=== PATIENT | male | born 1980 | race Caucasian/White ===

== ENCOUNTER 2018-11-17 21:02 | Emergency (ER) | payer MEDICARE, MEDICAID ==
[2018-11-17 21:54] LABS: ABSOLUTE BASOPHILS # (AUTO) 0.1 10^3/uL (0.0-0.2); ABSOLUTE EOSINOPHILS # (AUTO) 0.2 10^3/uL (0.0-0.6); ABSOLUTE LYMPHOCYTES (AUTO) 2.3 10^3/uL (0.5-4.7); ABSOLUTE MONOCYTES (AUTO) 0.7 10^3/uL (0.1-1.4); ABSOLUTE NEUT (AUTO) 3.4 10^3/uL (1.7-8.2); BASOPHILS % (AUTO) 1.1 % (0-2); EOSINOPHILS % (AUTO) 2.6 % (0-6); HEMOGLOBIN 14.4 g/dL (13.5-17.0); LYMPHOCYTES % (AUTO) 35.2 % (13-45); MEAN CORPUSCULAR HEMOGLOBIN 30.8 pg (27.0-33.4); MEAN CORPUSCULAR HGB CONC 34.4 g/dL (32.0-36.0); MEAN CORPUSCULAR VOLUME 90 fl (80-97); PLATELET COUNT 253 10^3/uL (150-450); RED BLOOD COUNT 4.69 10^6/uL (4.35-5.55); RED CELL DISTRIBUTION WIDTH 13.8 % (11.5-14.0); SEGMENTED NEUTROPHILS % (AUTO) 51.1 % (42-78); TOTAL CELLS COUNTED % (AUTO) 100 %; WHITE BLOOD COUNT 6.6 10^3/uL (4.0-10.5)
[2018-11-17 22:05] LABS: ALANINE AMINOTRANSFERASE 68 U/L (21-72); ALBUMIN 4.4 g/dL (3.5-5.0); ALCOHOL 20 mg/dL (NONE DETECTED); ALKALINE PHOSPHATASE 75 U/L (38-126); ANION GAP 10 (5-19); ASPARTATE AMINO TRANSFERASE 109 U/L (17-59); BILIRUBIN,DIRECT 0.1 mg/dL (0.0-0.4); BILIRUBIN,TOTAL 0.2 mg/dL (0.2-1.3); BLOOD UREA NITROGEN 18 mg/dL (7-20); CARBON DIOXIDE 25 mmol/L (22-30); CHLORIDE 106 mmol/L (98-107); GLUCOSE 82 mg/dL (75-110); POTASSIUM 4.3 mmol/L (3.6-5.0); SODIUM 140.5 mmol/L (137-145); TOTAL PROTEIN 6.3 g/dL (6.3-8.2)
[2018-11-17 22:06] LABS: ACETAMINOPHEN < 10 ug/mL (10-30); SALICYLATE < 1.0 mg/dL (2.0-20.0)
[2018-11-17] MEDS ORDERED: OLANZAPINE 5 MG TAB.RAPDIS PO ONE (22:23)
[2018-11-17 23:22] LABS: APPEARANCE,URINE CLEAR; BILIRUBIN,URINE NEGATIVE (NEGATIVE); COLOR,URINE YELLOW; GLUCOSE, URINE NEGATIVE (NEGATIVE); KETONES,URINE 20 mg/dL (NEGATIVE); LEUKOCYTE ESTERASE,URINE NEGATIVE (NEGATIVE); NITRITE,URINE NEGATIVE (NEGATIVE); PROTEIN,URINE NEGATIVE (NEGATIVE); URINE SPECIFIC GRAVITY 1.023
[2018-11-17 23:39] LABS: URINE AMPHETAMINES SCREEN NEGATIVE; URINE BARBITURATES SCREEN NEGATIVE; URINE BENZODIAZEPINES SCREEN NEGATIVE; URINE COCAINE SCREEN NEGATIVE; URINE MARIJUANA (THC) SCREEN NEGATIVE; URINE METHADONE SCREEN NEGATIVE; URINE PHENCYCLIDINE SCREEN NEGATIVE
--- NOTE | 2018-11-18 04:44 | ER Document Report ---
Entered by JACQUELINE MENDIETA SCRIBE 11/18/18 0248 Acting as scribe for:TELLY DODSON DO ED Psych Disorder / Suicide - General Chief Complaint: Psych Problem Stated Complaint: IVC Time Seen by Provider: 11/17/18 21:24 Mode of Arrival: Ambulatory Notes: 38-year-old male who presents to the emergency department today on IVC paperwork with complaints of "talking to people that are not there". According to the IVC paperwork the patient's sister states she is the caregiver for the patient and he is accusing her of stealing his things and cars from him but he has never owned any vehicles. Patient admits to EtOH usage today prior to arrival. TRAVEL OUTSIDE OF THE [place] IN LAST 30 DAYS: No - Related Data Allergies/Adverse Reactions: haloperidol [From Haldol] Allergy (Verified 11/17/18 22:54) Past Medical History - General Information source: Patient - Social History Smoking Status: Current Every Day Smoker Chew tobacco use (# tins/day): No Frequency of alcohol use: Heavy Drug Abuse: None Lives with: Family Family History: Reviewed & Not Pertinent Patient has suicidal ideation: Yes Patient has homicidal ideation: Yes Past Surgical History: Reports: Hx Cholecystectomy Review of Systems - Review of Systems Constitutional: No symptoms reported EENT: No symptoms reported Cardiovascular: No symptoms reported Respiratory: No symptoms reported Gastrointestinal: No symptoms reported Genitourinary: No symptoms reported Male Genitourinary: No symptoms reported Musculoskeletal: No symptoms reported Skin: No symptoms reported Hematologic/Lymphatic: No symptoms reported Neurological/Psychological: See HPI, Other - EtOH -: Yes All other systems reviewed and negative Physical Exam - Vital signs Vitals: Temp Pulse Resp BP Pulse Ox 98.4 F 120 H 16 133/79 H 100 11/17/18 21:02 11/17/18 21:02 11/17/18 21:02 11/17/18 21:02 11/17/18 21:02 Interpretation: Normal - General General appearance: Appears well, Alert - HEENT Head: Normocephalic, Atraumatic Eyes: Normal Pupils: PERRL - Respiratory Respiratory status: No respiratory distress Chest status: Nontender Breath sounds: Normal Chest palpation: Normal - Cardiovascular Rhythm: Regular Heart sounds: Normal auscultation Murmur: No - Abdominal Inspection: Normal Distension: No distension Bowel sounds: Normal Tenderness: Nontender Organomegaly: No organomegaly - Back Back: Normal, Nontender - Extremities General upper extremity: Normal inspection, Nontender, Normal color, Normal ROM, Normal temperature General lower extremity: Normal inspection, Nontender, Normal color, Normal ROM, Normal temperature, Normal weight bearing. No: Marisela's sign - Neurological Neuro grossly intact: Yes Cognition: Normal Orientation: AAOx4 Wick[place] Coma Scale Eye Opening: Spontaneous Leland Coma Scale Verbal: Oriented [place]fe Coma Scale Motor: Obeys Commands Leland Coma Scale Total: 15 Speech: Normal Motor strength normal: LUE, RUE, LLE, RLE Sensory: Normal - Psychological Associated symptoms: Labile, Restlessness - Skin Skin Temperature: Warm Skin Moisture: Dry Skin Color: Normal Course - Re-evaluation Re-evalutation: 11/18/18 Patient was brought in by law enforcement on involuntary commitment paperwork for apparently being aggressive with family this evening. Patient is restless in the room. States that he is not on any medications for anything although he probably is supposed to be. He is medically stable and will be held for mental health evaluation in the morning. Denies history of alcohol withdrawal. Of note, EtOH is only 20 Patient with no tremulousness. Repeat vitals with no evidence for alcohol withdrawal - Vital Signs Vital signs: Temp Pulse Resp BP Pulse Ox 98.4 F 120 H 16 133/79 H 100 11/17/18 21:02 11/17/18 21:02 11/17/18 21:02 11/17/18 21:02 11/17/18 21:02 - Laboratory Result Diagrams: 11/17/18 21:40 11/17/18 21:40 Laboratory results interpreted by me: 11/17/18 11/17/18 21:40 22:00 AST 109 H Urine Ketones 20 H Urine Urobilinogen 4.0 H Salicylates < 1.0 L Acetaminophen < 10 L Discharge - Discharge Clinical Impression: Behavior concern in adult Condition: Stable Disposition: OTHER Scribe Attestation: 11/18/18 04:43 I personally performed the services described in the documentation, reviewed and edited the documentation which was dictated to the scribe in my presence, and it accurately records my words and actions. I personally performed the services described in the documentation, reviewed and edited the documentation which was dictated to the scribe in my presence, and it accurately records my words and actions.
--- NOTE | 2018-11-18 07:44 | EKG REPORT ---
SEVERITY:- BORDERLINE ECG - SINUS TACHYCARDIA BORDERLINE T ABNORMALITIES, INFERIOR LEADS : Confirmed by: Roverto Jackson MD 18-Nov-2018 07:43:37
--- NOTE | 2018-11-18 09:10 | ER Document Report ---
Doctor's Note Notes: 11/18/18 09:10 Patient seen and evaluated by myself. No issues overnight per nursing. Patient's vital signs are stable. Patient brought to the emergency department for being aggressive with family, paranoia, delusions. He is brought to the emergency department by law enforcement with an IVC in place. Behavioral health saw and evaluated the patient. Patient does have a history of traumatic brain injury and schizophrenia. There is a family history of bipolar disorder. Patient given Zyprexa last night. Behavioral health to further evaluate patient today. 11/18/18 15:36 Behavioral health recommend starting Depakote, risperidone, Cogentin. They will reevaluate tomorrow.
[2018-11-18] MEDS ORDERED: NICOTINE 21 MG/24 HR PATCH.TD24 TD ONE (09:47)
--- NOTE | 2018-11-18 15:37 | PSYCHOLOGICAL NOTE ---
Psych Note - Psych Note Date seen by psych provider: 11/18/18 Time seen by psych provider: 10:50 Psych Note: Reason for Consult: IVC 38-year-old male who presents to the emergency department today on IVC paperwork with complaints of "talking to people that are not there". Medication recommendations per [facility]'s contracted psychiatrist Dr. Gee CRAMER are as follow Depakote 500 mg twice daily risperidone 0.5 mg twice daily Cogentin 1 mg daily Unspecified psychosis History to TBI Impression\\plan: Patient is recommended for continued IVC. Patient presents paranoid and guarded. He is unable to fully engage with clinician and repeatedly reports that he does not want to speak with clinician anymore. Patient's family reports the patient was diagnosis with schizophrenia 18 years ago and did suffer a major TBI before that diagnosis. There is a family history of bipolar and patient has history of substance abuse and attempt to self medicate. Patient has demonstrated deterioration in his mental health over the last few months however has recently become significantly paranoid with delusions of grandeur. Medication recommendations have been provided. Patient will be reevaluated. Dr. Valdez was consulted and the care management this patient; attending physicians in agreement with recommendations and disposition.
[2018-11-18] MEDS: BENZTROPINE MESYLATE 1 MG TABLET PO SCH (15:48)
[2018-11-18] MEDS ORDERED: RISPERIDONE 0.25 MG TABLET PO SCH (18:00)
[2018-11-18] MEDS: DIVALPROEX SODIUM 500 MG TAB.SR.24H PO SCH (18:11)
[2018-11-18] MEDS: RISPERIDONE 0.25 MG TABLET PO SCH (18:34)
[2018-11-19] MEDS ORDERED: ACETAMINOPHEN 325 MG TABLET PO PRN (09:34)
--- NOTE | 2018-11-19 09:44 | ER Document Report ---
Doctor's Note Notes: 11/19/18 09:41 Patient resting comfortably on stretcher, requesting some Tylenol for his shoulder pain which is chronic in nature, otherwise has no concerns or complaints, discussion with mental health team is that patient will likely be transferred for inpatient psychiatric care for further evaluation and treatment, patient medically cleared for transfer or discharge once a formal plan is made
[2018-11-19] MEDS: RISPERIDONE 0.25 MG TABLET PO SCH (10:13)
[2018-11-19] MEDS: BENZTROPINE MESYLATE 1 MG TABLET PO SCH (10:13)
[2018-11-19] MEDS: DIVALPROEX SODIUM 500 MG TAB.SR.24H PO SCH (10:13)
[2018-11-19 12:35] VITALS: BP 121/81
--- NOTE | 2018-11-19 12:44 | PSYCHOLOGICAL NOTE ---
Psych Note - Psych Note Date seen by psych provider: 11/19/18 Time seen by psych provider: 07:30 Psych Note: Reason for consult: 1st re-evaluation Contact Permissions: Laura Otero, sister [phone] Patient is a 38 yo male presenting to the ED for concerns of psychosis due to medication non-compliance. He reports that he "has no idea who called the shift supervisor melting's office to pick him up". Patient was reportedly eating a pizza after having worked out when they arrived. He surmises that he is here due "I've been drinking real bad lately" 1/2 case per day. He relays that he's in recovery for unspecified drugs. He asserts repeatedly throughout the evaluation that he is fine, nothing is wrong, and that he would like to discharge to smoke a cigarette. He also asserts repeatedly that he has come into a large sum of money and defers any questions he doesn't want to answer to his "construction manager and representatives". Patient is unable to provide a name, firm, or number and unwilling to disclose how he obtained the money or how much. He discloses that he just had a birthday today and just realized that he is 38 not 39. Patient at one time did refer to himself in the third person stating, "You can't ask the patient who has autism. I can't remember. Asked to clarify, patient lays down and discontinues the conversation refusing to answer. He at another point relayed that he had been in longterm for some time but again, would not elaborate. Patient is alert and oriented to person, believes today is Saturday, that he is in [place], and that he is in the ED due to excessive Etoh use. Mood is anxious with congruent affect aeb foot agitation, patient avoids eye contact, is guarded refusing to answer questions. Patient denies SI, HI, and AV/H, and does not appear to be responding to internal stimuli. However, is a possibility as patient was noted to have odd tic like behaviors (frequent arm stretching) and did refer to himself in the third person stating, "You can't ask the patient who has autism. I can't remember. Asked to clarify, patient lays down and discontinues the conversation refusing to answer. Paranoid and grandiose delusions were noted as belief he has construction manager and representatives to answer questions for him and guarded presentation. Conversational speech was WNL for rate, tone, and prosody. Eye contact was poorly maintained. Thought processes were irrational and patient reported confusions stating he just relaized that he turned 38 on the [birth year]th not 39. Intellectual abilities were estimated within the average range. Attention/concentration was WNL while, insight, judgment, and impulse control were poor. Medication recommendations per [facility]'s contracted psychiatrist Dr. Gee CRAMER are as follow Depakote 500 mg twice daily risperidone 0.5 mg twice daily Cogentin 1 mg daily Diagnosis: Unspecified psychosis History to TBI Patient is recommended to maintain IVC due to risk of harm to self or others aeb patient has a hx of TBI and psychosis impairing insight, judgment, and impulse control, is presenting with delusions, has been treatment non-compliant and self-medicating on illicit drugs and most recently alcohol for some time. Patient has demonstrated deterioration in his mental health over the last few months however has recently become significantly delusional, not allowing family into or leaving the home. Medication recommendations have been provided however, it is felt based on minimal improvement in the ED that patient will need longer psychiatric stabilization than ED can provide. Plan is for Patient to be transferred to [facility] today. Patient gave consent to update his sister on his plan of care and she was advised by phone. Dr. Valdez was consulted and the care management this patient; attending physicians in agreement with recommendations and disposition.
== END 2018-11-19 12:39 | disposition other institution (70) ==
LOC: ER 21:02
DX: F91.9 Conduct disorder, unspecified (principal); Z90.49 Acquired absence of other specified parts of digestive tract; F17.200 Nicotine dependence, unspecified, uncomplicated; Z87.820 Personal history of traumatic brain injury; M25.519 Pain in unspecified shoulder
CPT/HCPCS: 93005; 99285; 36415; 80307 ×4; 85025; 80053; 81001; 93010; A9270 ×7; J3490

== ENCOUNTER 2019-07-01 18:30 | Emergency (ER) | payer MEDICARE, MEDICAID ==
[2019-07-01] MEDS ORDERED: MORPHINE SULFATE 10 MG/ML INJ IV ONE (18:49)
[2019-07-01] MEDS ORDERED: DIPH/PERTUSS(ACELL)/TETANUS VAC/PF 0.5 ML SYR (>=10YO) IM ONE (18:50)
[2019-07-01 19:02] LABS: ABSOLUTE BASOPHILS # (AUTO) 0.1 10^3/uL (0.0-0.2); ABSOLUTE EOSINOPHILS # (AUTO) 0.3 10^3/uL (0.0-0.6); ABSOLUTE LYMPHOCYTES (AUTO) 2.6 10^3/uL (0.5-4.7); ABSOLUTE MONOCYTES (AUTO) 0.8 10^3/uL (0.1-1.4); ABSOLUTE NEUT (AUTO) 5.8 10^3/uL (1.7-8.2); BASOPHILS % (AUTO) 1.2 % (0-2); EOSINOPHILS % (AUTO) 3.1 % (0-6); HEMATOCRIT 52.3 % (37.9-51.0); HEMOGLOBIN 17.9 g/dL (13.5-17.0); LYMPHOCYTES % (AUTO) 26.9 % (13-45); MEAN CORPUSCULAR HEMOGLOBIN 30.6 pg (27.0-33.4); MEAN CORPUSCULAR HGB CONC 34.2 g/dL (32.0-36.0); MEAN CORPUSCULAR VOLUME 90 fl (80-97); MONOCYTES % (AUTO) 8.7 % (3-13); PLATELET COUNT 249 10^3/uL (150-450); RED BLOOD COUNT 5.84 10^6/uL (4.35-5.55); SEGMENTED NEUTROPHILS % (AUTO) 60.1 % (42-78); TOTAL CELLS COUNTED % (AUTO) 100 %; WHITE BLOOD COUNT 9.6 10^3/uL (4.0-10.5)
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
[2019-07-01 19:20] LABS: ALBUMIN 4.3 g/dL (3.5-5.0); ALKALINE PHOSPHATASE 127 U/L (38-126); ANION GAP 8 (5-19); ASPARTATE AMINO TRANSFERASE 154 U/L (17-59); BILIRUBIN,DIRECT 0.2 mg/dL (0.0-0.4); BILIRUBIN,TOTAL 0.7 mg/dL (0.2-1.3); BLOOD UREA NITROGEN 15 mg/dL (7-20); CALCIUM 9.8 mg/dL (8.4-10.2); CARBON DIOXIDE 29 mmol/L (22-30); CHLORIDE 103 mmol/L (98-107); GLUCOSE 117 mg/dL (75-110); POTASSIUM 4.3 mmol/L (3.6-5.0); TOTAL PROTEIN 7.5 g/dL (6.3-8.2)
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
[2019-07-01 19:21] LABS: APPEARANCE,URINE SLIGHTLY-CLOUDY; BILIRUBIN,URINE NEGATIVE (NEGATIVE); CALCIUM OXALATE CRYSTALS,URINE MODERATE /HPF; COLOR,URINE AMBER; GLUCOSE, URINE NEGATIVE (NEGATIVE); KETONES,URINE TRACE mg/dL (NEGATIVE); LEUKOCYTE ESTERASE,URINE NEGATIVE (NEGATIVE); NITRITE,URINE NEGATIVE (NEGATIVE); PROTEIN,URINE 100 mg/dL (NEGATIVE); URINE SPECIFIC GRAVITY 1.026
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
[2019-07-01 22:22] VITALS: BP 136/85
== END 2019-07-01 22:21 | disposition home or self-care (01) ==
LOC: ER 18:30
DX: S00.81XA Abrasion of other part of head, initial encounter (principal); S00.83XA Contusion of other part of head, initial encounter; S52.124A Nondisplaced fracture of head of right radius, initial encounter for closed fracture; S16.1XXA Strain of muscle, fascia and tendon at neck level, initial encounter; R51 Headache; M25.511 Pain in right shoulder; M25.531 Pain in right wrist; V86.59XA Driver of other special all-terrain or other off-road motor vehicle injured in nontraffic accident, initial encounter; F17.200 Nicotine dependence, unspecified, uncomplicated
CPT/HCPCS: 99284; 90471; 96374; 36415; 85025; 80053; 81001; 73080; 73030; 73110; 70450; 70486; 72125; 90715; J2270